=== PATIENT | male | born 1960 | race African-American/Black ===

== ENCOUNTER 2016-05-30 09:44 | Inpatient (IN) | payer OTHER ==
[2016-05-30 10:56] VITALS: BMI 24.5
--- NOTE | 2016-05-30 12:47 | HP ---
CIWA Score - CIWA Score Nausea/Vomitin (DIARRHEA) Muscle Tremors: 4-Moderate,w/Arms Extend Anxiety: 4-Mod. Anxious/Guarded Agitation: 4-Moderately Restless Paroxysmal Sweats: 1-Minimal Palms Moist Orientation: 0-Oriented Tacttile Disturbances: 3-Moderate Itch/Numb/Burn Auditory Disturbances: 0-None Visual Disturbances: 0-None Headache: 0-None Present CIWA-Ar Total Score: 21 Admission ROS BHS - HPI Chief Complaint: DETOX TX FOR ALCOHOL DEPENDENCE. Allergies/Adverse Reactions: Allergies Allergy/AdvReac Type Severity Reaction Status Date / Time No Known Drug Allergies Allergy Verified 05/30/16 13:54 SHRIMP Allergy Severe Swelling Uncoded 05/30/16 11:48 NKDA Allergy Uncoded 05/30/16 11:48 History of Present Illness: 56 Y/O AA/MALE WITH A HX OF ALCOHOL DEPENDENCE SEEKING DETOX TX. PT WAS DISCHARGED FROM [facility] ER TODAY FOR ALCOHOL INTOXICATION AND REFERRED HERE FOR DETOX. Exam Limitations: No Limitations, Intoxication - Ebola screening Have you traveled outside of the country in the last 21 days: No Have you had contact with anyone from an Ebola affected area: No Have you been sick,other than usual withdrawal symptoms: No - Review of Systems Constitutional: Chills, Night Sweats, Changes in sleep EENT: reports: Blurred Vision, Tearing, Dental Problems, Other (ABRASION ON RIGHT SIDE OF NOSE FROM SCRATCHING PER PATIENT.) Respiratory: reports: Shortness of Breath (HX CHILDHOOD ASTHMA), Wheezing Cardiac: reports: Lightheadedness GI: reports: Diarrhea : reports: No Symptoms Reported Musculoskeletal: reports: Gout (LEFT BIG TOE), Joint Pain (LEFT KNEE PAIN), Muscle Pain Integumentary: reports: Bruising (LEFT SIDE OF NOSE.) Neuro: reports: Tremors, Unsteady Gait, Dizziness Endocrine: reports: No Symptoms Reported Hematology: reports: No Symptoms Reported Psychiatric: reports: Orientated x3, Anxious, Depressed Other Systems: Reviewed and Negative Patient History - Patient Medical History Hx Anemia: No Hx Asthma: Yes (as a child) Hx Chronic Obstructive Pulmonary Disease (COPD): No Hx Cancer: No Hx Cardiac Disorders: No Hx Congestive Heart Failure: No Hx Hypertension: No Hx Hypercholesterolemia: No Hx Pacemaker: No HX Cerebrovascular Accident: No Hx Seizures: No Hx Dementia: No Hx Diabetes: No Hx Gastrointestinal Disorders: No Hx Liver Disease: No Hx Genitourinary Disorders: No Hx Sexually Transmitted Disorders: Yes (gonorrhea) Hx Renal Disease (ESRD): No Hx Thyroid Disease: No Hx Human Immunodeficiency Virus (HIV): No (NEG. 3 WKS AGO;NEGATIVE HX) Hx Hepatitis C: No Hx Depression: Yes Hx Suicide Attempt: No Hx Bipolar Disorder: Yes Hx Schizophrenia: Yes - Patient Surgical History Past Surgical History: Yes Hx Neurologic Surgery: No Hx Cataract Extraction: No Hx Cardiac Surgery: No Hx Lung Surgery: No Hx Breast Surgery: No Hx Breast Biopsy: No Hx Abdominal Surgery: No Hx Appendectomy: No Hx Cholecystectomy: No Hx Genitourinary Surgery: No Hx Orthopedic Surgery: No Other Surgical History: L testicle sx-TESTICULAR TORSION Anesthesia Reaction: No - PPD History Previous Implant?: Yes Documented Results: Negative w/proof (PT WAS NEGATIVE WITH PROOF ON 02/07/15 ADMISSION HERE. TODAY, PT STATES HX PPD+ WITH INH TREATMENT MANY YEARS AGO. NOW WANTS CXR.) Implanted On Prior [facility] Admission?: Yes Date: 02/07/15 Results: 0 mm PPD to be Administered?: Yes - Reproductive History Patient is a Female of Child Bearing Age (11 -55 yrs old): No (MALE) - Smoking Cessation Smoking history: Former smoker Have you smoked in the past 12 months: No Aproximately how many cigarettes per day: 0 If you are a former smoker, when did you quit?: 1980 Cigars Per Day: 0 Hx Chewing Tobacco Use: No Initiated information on smoking cessation: No - Substance & Tx. History Hx Alcohol Use: Yes (BEER) Hx Substance Use: No (DENIES) Substance Use Type: Alcohol Hx Substance Use Treatment: Yes ([facility]-DETOX) - Substances Abused Alcohol-beer Route: Oral Frequency: Daily Amount used: 5 (40 oz.) Age of first use: 9 Date of Last Use: 05/30/16 Family Disease History - Family Disease History Family Disease History: CA: Father Admission Physical Exam BHS - Vital Signs Vital Signs: Vital Signs - 24 hr 05/30/16 10:50 Temperature 96.5 F L Pulse Rate 106 H Respiratory 20 Rate Blood Pressure 113/78 - Physical General Appearance: Yes: Moderate Distress, Alcohol on Breath, Intoxicated, Anxious HEENTM: Yes: EOMI, Normocephalic, [place], Pharynx Normal Respiratory: Yes: Chest Non-Tender, Lungs Clear, Normal Breath Sounds, No Respiratory Distress Neck: Yes: Supple, Trachea in good position Breast: Yes: Breast Exam Deferred Cardiology: Yes: Regular Rhythm, S1, S2, Tachycardia Abdominal: Yes: Normal Bowel Sounds, Non Tender, Soft Genitourinary: Yes: Other (N/C) Back: Yes: Within Normal Limits Musculoskeletal: Yes: full range of Motion, Gait Steady Extremities: Yes: Normal Range of Motion, Non-Tender, Swelling (LOWER LEGS.) Neurological: Yes: diaper machine tender II-XII NML intact, Fully Oriented, Alert Integumentary: Yes: Dry (AND SCALY), Warm Lymphatic: Yes: Within Normal Limits - Diagnostic (1) Arthritis of knee, right Current Visit: Yes Status: Chronic (2) History of depression Current Visit: Yes Status: Chronic (3) Gouty arthritis of toe of left foot Current Visit: Yes Status: Chronic (4) Arthritis of left knee Current Visit: Yes Status: Chronic (5) Abrasion Current Visit: No Status: Acute (6) Dry skin Current Visit: Yes Status: Chronic (7) Alcohol dependence with uncomplicated withdrawal Current Visit: Yes Status: Acute Cleared for Admission [facility] - Detox or Rehab [facility] Level of Care: Medically Managed Detox Regimen/Protocol: Librium [facility] Breath Alcohol Content Breath Alcohol Content: 0.170 Urine Drug Screen - Results Drug Screen Negative: No Urine Drug Screen Results: BZO-Benzodiazepines
[2016-05-30] MEDS ORDERED: MAGNESIUM HYDROX 2400MG/30ML ORAL SUSPENSION 30 ML CUP PO PRN (13:24)
[2016-05-30] MEDS ORDERED: MAG HYDROX/AL HYDROX/SIMETH 30 ML UNIT-DOSE CUP PO PRN (13:24)
[2016-05-30] MEDS ORDERED: MAGNESIUM CITRATE 300 ML BOTTLE PO PRN (13:24)
[2016-05-30] MEDS ORDERED: guaiFENesin/D-METHORPHAN HB 10 ML UNIT-DOSE CUPS PO PRN (13:24)
[2016-05-30] MEDS ORDERED: chlordiazePOXIDE HCL 25 MG CAPSULE PO PRN (13:24)
[2016-05-30] MEDS ORDERED: MENTHOL/PHENOL 1 EACH UD MM PRN (13:24)
[2016-05-30] MEDS ORDERED: ACETAMINOPHEN 325 MG TABLET (FP) PO PRN (13:24)
[2016-05-30] MEDS ORDERED: P-EPHED 60MG/TRIPROLIDI 2.5MG TABLET PO PRN (13:24)
[2016-05-30] MEDS ORDERED: LOPERAMIDE HCL 2 MG CAPSULE PO PRN (13:24)
[2016-05-30] MEDS ORDERED: hydrOXYzine PAMOATE 25 MG CAPSULE (FP) PO PRN (13:24)
[2016-05-30] MEDS ORDERED: diphenhydrAMINE HCL 50 MG CAPSULE PO PRN (13:24)
[2016-05-30] MEDS ORDERED: AMMONIUM LACTATE 12% LOTION 225 GM BOTTLE TP SCH ×2 (13:30→16:30)
[2016-05-30] MEDS ORDERED: chlordiazePOXIDE HCL 25 MG CAPSULE PO ONE (14:41)
[2016-05-30 15:11] LABS: HIV 1 & 2 AB NEGATIVE; HIV 1 AGp24 NEGATIVE
[2016-05-30] MEDS: IBUPROFEN 400 MG TABLET (FP) PO PRN (15:20)
--- NOTE | 2016-05-30 15:34 | CONSULT ---
[facility] Psychiatric Consult - Data Date of interview: 05/30/16 Admission source: [facility] Identifying data: Readmission to [facility] for this 56 y/o AA male seeking detox treatment for alcohol dependence.He is single,a father of five,domiciled ( transitional housing),unemployed and supported on [facility] benefits. Substance Abuse History: - Smoking Cessation. Smoking history: Former smoker. Have you smoked in the past 12 months: No. Aproximately how many cigarettes per day: 0. If you are a former smoker, when did you quit?: 1979. Cigars Per Day: 0. Hx Chewing Tobacco Use: No. Initiated information on smoking cessation : No. - Substance & Tx. History. Hx Alcohol Use: Yes (BEER). Hx Substance Use : No (DENIES). Substance Use Type: Alcohol. Hx Substance Use Treatment: Yes ( [facility]). - Substances Abused. Alcohol-beer. Route: Oral. Frequency: Daily. Amount used: 5 (40 oz.). Age of first use: 9. Date of Last Use: Medical History: Bronchial asthma (childhood),seizures (alcohol-induced in 2013 ) and history of testicular torsion.Noted report of past treatment for gonorrhea. Psychiatric History: No history of psychiatric hospitalizations.Patient admits to being diagnosed with " Bipolar Disorder and Schizophrenia." Mr Salguero used to be followed at [facility] clinic.He now gets his psychiatric oupatient services at the [facility] in the [place].Patient is maintained on a regimen of 10 mg of asenapine (saphris) daily.Patient has no recollection of his most recent intake of that medication.No history of suicide attempts. Physical/Sexual Abuse/Trauma History: Patient denies. Additional Comment: Urine Drug Screen Results: BZO-Benzodiazepines.Noted. Mental Status Exam - Mental Status Exam Alert and Oriented to: Time, Place, Person Cognitive Function: Good Patient Appearance: Disheveled Mood: Nervous, Withdrawn, Apprehensive Affect: Mood Congruent Patient Behavior: Fatigued, Appropriate, Cooperative Speech Pattern: Clear, Appropriate Voice Loudness: Normal Thought Process: Goal Oriented Thought Disorder: Not Present Hallucinations: Denies Suicidal Ideation: Denies Homicidal Ideation: Denies Insight/Judgement: Fair Sleep: Poorly, Difficulty falling asleep Appetite: Good Muscle strength/Tone: Normal Gait/Station: Normal Psychiatric Findings - Problem List ([place] 1, 2,3) (1) Alcohol dependence with uncomplicated withdrawal Current Visit: Yes Status: Acute (2) Bipolar disorder Current Visit: Yes Status: Chronic Qualifiers: Active/Remission status: remission status unspecified Qualified Code(s) : F31.9 - Bipolar disorder, unspecified Comment: History. (3) Substance induced mood disorder Current Visit: Yes Status: Acute (4) Arthritis of left knee Current Visit: Yes Status: Chronic (5) Gouty arthritis of toe of left foot Current Visit: Yes Status: Chronic (6) Arthritis of knee, right Current Visit: Yes Status: Chronic (7) Insomnia Current Visit: Yes Status: Acute - Initial Treatment Plan Initial Treatment Plan: Psychoeducation.Detoxification.Zolpidem 10 mg po hs prn.Patient made aware of risk of parasomnias.He agrees with this plan.Observation.
[2016-05-30] MEDS: chlordiazePOXIDE HCL 25 MG CAPSULE PO SCH ×2 (17:30→22:25)
[2016-05-30 21:50] LABS: URINE APPEARANCE CLEAR; URINE BILIRUBIN NEGATIVE (NEGATIVE); URINE BLOOD NEGATIVE (NEGATIVE); URINE COLOR YELLOW; URINE GLUCOSE (UA) NEGATIVE (NEGATIVE); URINE KETONE NEGATIVE (NEGATIVE); URINE LEUK ESTERASE NEGATIVE (NEGATIVE); URINE NITRITE NEGATIVE (NEGATIVE); URINE PROTEIN NEGATIVE (NEGATIVE); URINE UROBILINOGEN 2.0 E.U/dl E.U./dl (0.2-1.0)
[2016-05-30] MEDS: ZOLPIDEM TARTRATE 10 MG TABLET (PARK CARE ONLY) PO PRN (22:25)
[2016-05-30] MEDS: THIAMINE HCL 100 MG TABLET (FP) PO SCH (22:25)
[2016-05-31] MEDS: chlordiazePOXIDE HCL 25 MG CAPSULE PO SCH ×4 (06:05→22:24)
--- NOTE | 2016-05-31 10:35 | PN ---
S CIWA - CIWA Score Nausea/Vomitin-No Nausea/No Vomiting Muscle Tremors: 3 Anxiety: 4-Mod. Anxious/Guarded Agitation: 3 Paroxysmal Sweats: 3 Orientation: 0-Oriented Tacttile Disturbances: 0-None Auditory Disturbances: 0-None Visual Disturbances: 0-None Headache: 0-None Present CIWA-Ar Total Score: 13 S Progress Note (SOAP) Subjective: Anxiety,tremors,sweating,interrupted sleep. Objective: 05/31/16 10:34 Vital Signs - 8 hr 05/31/16 05/31/16 03:30 06:43 Temperature 97.7 F Pulse Rate 118 H Respiratory 18 16 Rate Blood Pressure 124/75 Laboratory Tests 05/30/16 05/30/16 05/30/16 13:10 13:30 20:00 Urine Color Yellow Urine Appearance Clear Urine pH 5.0 Ur Specific [place] 1.009 Urine Protein Negative Urine Glucose (UA) Negative Urine Ketones Negative Urine Blood Negative Urine Nitrite Negative Urine Bilirubin Negative Urine Urobilinogen 2.0 e.u/dl Ur Leukocyte Esterase Negative Hepatitis C Antibody <0.1 HIV 1&2 Antibody Screen Negative HIV P24 Antigen Negative labs noted Assessment: 05/31/16 10:34 Withdrawal sx. Plan: Continue detox
[2016-05-31] MEDS: PRENATAL VITAMINS W/ FOLIC ACID TABLET (FP) PO SCH (10:52)
[2016-05-31 11:17] LABS: MCH 31.4 pg (25.7-33.7); MCHC 32.8 g/dl (32.0-35.9); MEAN CELL VOLUME 95.7 fl (80-96); MEAN PLT VOLUME 8.2 fl (7.5-11.1); PLATELET COUNT 104 K/MM3 (134-434); RDW 14.3 % (11.9-15.9); WHITE BLOOD COUNT 2.5 K/mm3 (4.0-10.0)
[2016-05-31 11:36] LABS: ANION GAP 10 (8-16); CALCIUM 8.3 mg/dL (8.5-10.1); CO2 29 mmol/L (21-32); CREATININE 0.9 mg/dL (0.7-1.3); GLUCOSE,RANDOM 64 mg/dL (74-106)
[2016-05-31 11:37] LABS: ALBUMIN 3.5 g/dl (3.4-5.0); ALK PHOS 147 U/L (45-117); BILIRUBIN,TOTAL 0.7 mg/dL (0.2-1.0); SGOT/AST 71 U/L (15-37); SGPT/ALT 39 U/L (12-78); TOT PROT 8.5 g/dl (6.4-8.2)
[2016-05-31] MEDS: IBUPROFEN 400 MG TABLET (FP) PO PRN (17:38)
[2016-05-31] MEDS: THIAMINE HCL 100 MG TABLET (FP) PO SCH (22:24)
[2016-05-31] MEDS: ZOLPIDEM TARTRATE 10 MG TABLET (PARK CARE ONLY) PO PRN (22:24)
[2016-06-01] MEDS: chlordiazePOXIDE HCL 25 MG CAPSULE PO SCH ×2 (06:12→10:24)
[2016-06-01] MEDS: PRENATAL VITAMINS W/ FOLIC ACID TABLET (FP) PO SCH (10:24)
[2016-06-01] MEDS: IBUPROFEN 400 MG TABLET (FP) PO PRN (10:25)
[2016-06-01] MEDS: LIDOCAINE 5% TOPICAL PATCH TP SCH (13:57)
--- NOTE | 2016-06-01 16:06 | PN ---
S CIWA - CIWA Score Nausea/Vomitin Muscle Tremors: 4-Moderate,w/Arms Extend Anxiety: 3 Agitation: 4-Moderately Restless Paroxysmal Sweats: No Perspiration Orientation: 0-Oriented Tacttile Disturbances: 1-Very Mild Itch/Numbness Auditory Disturbances: 0-None Visual Disturbances: 0-None Headache: 3-Moderate CIWA-Ar Total Score: 18 BHS Progress Note (SOAP) Subjective: Anxious, back pain (9.5/10), sweating, interrupted sleep Objective: 06/01/16 16:05 Last Vital Signs Temp Pulse Resp BP Pulse Ox 97 F L 117 H 19 107/73 06/01/16 14:12 06/01/16 14:12 06/01/16 14:12 06/01/16 14:12 Laboratory Tests 05/30/16 05/30/16 05/30/16 13:10 13:30 20:00 WBC RBC Hgb Hct MCV MCHC RDW Plt Count MPV Sodium Potassium Chloride Carbon Dioxide Anion Gap BUN Creatinine Creat Clearance w eGFR Random Glucose Calcium Total Bilirubin AST ALT Alkaline Phosphatase Total Protein Albumin Urine Color Yellow Urine Appearance Clear Urine pH 5.0 Ur Specific [place] 1.009 Urine Protein Negative Urine Glucose (UA) Negative Urine Ketones Negative Urine Blood Negative Urine Nitrite Negative Urine Bilirubin Negative Urine Urobilinogen 2.0 e.u/dl Ur Leukocyte Esterase Negative RPR Titer Hepatitis C Antibody <0.1 HIV 1&2 Antibody Screen Negative HIV P24 Antigen Negative 05/31/16 05/31/16 05/31/16 06:15 06:15 06:15 WBC 2.5 L D RBC 4.05 Hgb 12.7 Hct 38.8 MCV 95.7 MCHC 32.8 RDW 14.3 Plt Count 104 L MPV 8.2 Sodium 141 Potassium 3.7 Chloride 102 Carbon Dioxide 29 Anion Gap 10 BUN 8 D Creatinine 0.9 D Creat Clearance w eGFR > 60 Random Glucose 64 L D Calcium 8.3 L Total Bilirubin 0.7 D AST 71 H ALT 39 D Alkaline Phosphatase 147 H Total Protein 8.5 H Albumin 3.5 D Urine Color Urine Appearance Urine pH Ur Specific [place] Urine Protein Urine Glucose (UA) Urine Ketones Urine Blood Urine Nitrite Urine Bilirubin Urine Urobilinogen Ur Leukocyte Esterase RPR Titer Nonreactive Hepatitis C Antibody HIV 1&2 Antibody Screen HIV P24 Antigen Labs noted Assessment: 06/01/16 16:05 Withdrawal symptoms Plan: Continue detox Lidocaine patch 5% for back pain
[2016-06-01] MEDS: chlordiazePOXIDE 5 MG CAPSULE PO SCH ×2 (17:46→22:25)
[2016-06-01] MEDS: THIAMINE HCL 100 MG TABLET (FP) PO SCH (22:25)
[2016-06-01] MEDS: ZOLPIDEM TARTRATE 10 MG TABLET (PARK CARE ONLY) PO PRN (22:25)
[2016-06-02] MEDS: chlordiazePOXIDE 5 MG CAPSULE PO SCH ×2 (06:07→10:36)
[2016-06-02] MEDS: IBUPROFEN 400 MG TABLET (FP) PO PRN (06:08)
[2016-06-02] MEDS: PRENATAL VITAMINS W/ FOLIC ACID TABLET (FP) PO SCH (10:36)
[2016-06-02] MEDS: LIDOCAINE 5% TOPICAL PATCH TP SCH (11:05)
--- NOTE | 2016-06-02 11:33 | EKG ---
Test Reason : Blood Pressure : / mmHG Vent. Rate : 102 BPM Atrial Rate : 102 BPM P-R Int : 136 ms QRS Dur : 074 ms QT Int : 346 ms P-R-T Axes : 048 039 047 degrees QTc Int : 450 ms SINUS TACHYCARDIA OTHERWISE NORMAL ECG NO PREVIOUS ECGS AVAILABLE Confirmed by LIAM GAYTAN MD ([id number]) on 06/02/2016 11:32:28 AM Referred By: Yossi Gardner Confirmed By:LIAM GAYTAN MD
--- NOTE | 2016-06-02 13:59 | PN ---
BHS Progress Note (SOAP) Subjective: Sweating,interrupted sleep,restless. Objective: 06/02/16 13:59 Vital Signs - 8 hr 06/02/16 06/02/16 06/02/16 06:49 09:35 13:32 Temperature 97.4 F L 96.2 F L 96.8 F L Pulse Rate 112 H 98 H 104 H Respiratory 16 20 20 Rate Blood Pressure 118/74 114/74 111/71 Laboratory Last Values WBC 2.5 K/mm3 (4.0-10.0) L D 05/31/16 06:15 RBC 4.05 M/mm3 (4.00-5.60) 05/31/16 06:15 Hgb 12.7 GM/dL (11.7-16.9) 05/31/16 06:15 Hct 38.8 % (35.4-49) 05/31/16 06:15 MCV 95.7 fl (80-96) 05/31/16 06:15 MCHC 32.8 g/dl (32.0-35.9) 05/31/16 06:15 RDW 14.3 % (11.9-15.9) 05/31/16 06:15 Plt Count 104 K/MM3 (134-434) L 05/31/16 06:15 MPV 8.2 fl (7.5-11.1) 05/31/16 06:15 Sodium 141 mmol/L (136-145) 05/31/16 06:15 Potassium 3.7 mmol/L (3.5-5.1) 05/31/16 06:15 Chloride 102 mmol/L (98-107) 05/31/16 06:15 Carbon Dioxide 29 mmol/L (21-32) 05/31/16 06:15 Anion Gap 10 (8-16) 05/31/16 06:15 BUN 8 mg/dL (7-18) D 05/31/16 06:15 Creatinine 0.9 mg/dL (0.7-1.3) D 05/31/16 06:15 Creat Clearance w eGFR > 60 (>60) 05/31/16 06:15 Random Glucose 64 mg/dL (74-106) L D 05/31/16 06:15 Calcium 8.3 mg/dL (8.5-10.1) L 05/31/16 06:15 Total Bilirubin 0.7 mg/dL (0.2-1.0) D 05/31/16 06:15 AST 71 U/L (15-37) H 05/31/16 06:15 ALT 39 U/L (12-78) D 05/31/16 06:15 Alkaline Phosphatase 147 U/L (45-117) H 05/31/16 06:15 Total Protein 8.5 g/dl (6.4-8.2) H 05/31/16 06:15 Albumin 3.5 g/dl (3.4-5.0) D 05/31/16 06:15 Urine Color Yellow 05/30/16 20:00 Urine Appearance Clear 05/30/16 20:00 Urine pH 5.0 (5.0-8.0) 05/30/16 20:00 Ur Specific [place] 1.009 (1.001-1.035) 05/30/16 20:00 Urine Protein Negative (NEGATIVE) 05/30/16 20:00 Urine Glucose (UA) Negative (NEGATIVE) 05/30/16 20:00 Urine Ketones Negative (NEGATIVE) 05/30/16 20:00 Urine Blood Negative (NEGATIVE) 05/30/16 20:00 Urine Nitrite Negative (NEGATIVE) 05/30/16 20:00 Urine Bilirubin Negative (NEGATIVE) 05/30/16 20:00 Urine Urobilinogen 2.0 e.u/dl E.U./dl (0.2-1.0) 05/30/16 20:00 Ur Leukocyte Esterase Negative (NEGATIVE) 05/30/16 20:00 RPR Titer Nonreactive (NONREACTIVE) 05/31/16 06:15 Hepatitis C Antibody <0.1 s/co ratio (0.0-0.9) 05/30/16 13:30 HIV 1&2 Antibody Screen Negative 05/30/16 13:10 HIV P24 Antigen Negative 05/30/16 13:10 labs noted Assessment: 06/02/16 13:59 Withdrawal sx. Plan: Continue detox
[2016-06-02] MEDS: chlordiazePOXIDE HCL 10 MG CAPSULE PO SCH ×2 (17:13→22:33)
[2016-06-02] MEDS: THIAMINE HCL 100 MG TABLET (FP) PO SCH (22:33)
[2016-06-03] MEDS: chlordiazePOXIDE HCL 10 MG CAPSULE PO SCH (05:37)
[2016-06-03] MEDS: LIDOCAINE 5% TOPICAL PATCH TP SCH (10:22)
[2016-06-03] MEDS: PRENATAL VITAMINS W/ FOLIC ACID TABLET (FP) PO SCH (10:22)
[2016-06-03 13:25] VITALS: BP 101/73; PULSE 75
[2016-06-03 13:43] VITALS: TEMP 97
--- NOTE | 2016-06-03 14:17 | DS ---
[facility] Detox Discharge Summary Admission Date: 05/30/16 Discharge Date: 06/03/16 - History Present History: Alcohol Dependence Additional Comments: DETOX COMPLETED. ALERT O X 3. NAD. CXR REPORT GIVEN TO PT TO FOLLOW UP WITH PMD. Pertinent Past History: GOUTY ARTHRITIS LEFT TOE ARTHRITIS RIGHT KNEE HX PPD (+) BIPOLAR DISORDER - Physical Exam Results Vital Signs: Vital Signs Temperature 97.0 F L 06/03/16 13:41 Pulse Rate 75 06/03/16 13:41 Respiratory Rate 20 06/03/16 13:41 Blood Pressure 101/73 06/03/16 13:41 O2 Sat by Pulse Oximetry (%) Pertinent Admission Physical Exam Findings: WITHDRAWAL SX - Treatment Hospital Course: Detox Protocol Followed, Detoxed Safely, Responded well, Discharged Condition Good - Medication Discharge Medications: Ambulatory Orders Asenapine [Saphris -] 10 mg SL DAILY 02/05/15 - Diagnosis (1) Arthritis of knee, right Current Visit: Yes Status: Chronic (2) History of depression Current Visit: Yes Status: Chronic (3) Gouty arthritis of toe of left foot Current Visit: Yes Status: Chronic (4) Arthritis of left knee Current Visit: Yes Status: Chronic (5) Abrasion Current Visit: No Status: Resolved (6) Dry skin Current Visit: Yes Status: Chronic (7) Alcohol dependence with uncomplicated withdrawal Current Visit: Yes Status: Acute - AMA Did Patient Leave Against Medical Advice: No
== END 2016-06-03 14:13 | disposition home or self-care (01) | DRG 775 ==
LOC: YASAS 09:44 → Y3N 12:48
PROVIDERS: ADMIT Internal Medicine; ATTEND Internal Medicine
PROC: HZ2ZZZZ Detoxification Services for Substance Abuse Treatment (ICD-10-PCS; principal; 2016-06-03)
DX: F10.230 Alcohol dependence with withdrawal, uncomplicated (principal); F31.9 Bipolar disorder, unspecified; F19.24 Other psychoactive substance dependence with psychoactive substance-induced mood disorder; M10.9 Gout, unspecified; M13.862 Other specified arthritis, left knee; M13.861 Other specified arthritis, right knee; G47.00 Insomnia, unspecified
CPT/HCPCS: 36415; 71010-TC; 71020-TC; 80053; 81003; 85027; 86593; 87389; 93005; 93010

== ENCOUNTER 2016-11-25 08:51 | Inpatient (IN) | payer OTHER ==
[2016-11-25 10:45] VITALS: BMI 22.9
--- NOTE | 2016-11-25 13:27 | HP ---
CIWA Score - CIWA Score Nausea/Vomitin-No Nausea/No Vomiting Muscle Tremors: 4-Moderate,w/Arms Extend Anxiety: 4-Mod. Anxious/Guarded Agitation: 3 Paroxysmal Sweats: 1-Minimal Palms Moist Orientation: 0-Oriented Tacttile Disturbances: 3-Moderate Itch/Numb/Burn Auditory Disturbances: 0-None Visual Disturbances: 0-None Headache: 0-None Present CIWA-Ar Total Score: 15 Admission ROS BHS - HPI Chief Complaint: DETOX TX FOR ALCOHOL DEPENDENCE Allergies/Adverse Reactions: Allergies Allergy/AdvReac Type Severity Reaction Status Date / Time No Known Drug Allergies Allergy Verified 11/25/16 10:44 SHRIMP Allergy Severe Swelling Uncoded 11/25/16 10:44 NKDA Allergy Uncoded 11/25/16 10:44 History of Present Illness: 56 Y/O AA/MALE WITH A HX OF ALCOHOL DEPENDENCE SEEKING DETOX TX. PT STATES WAS AT [facility] LAST NIGHT FOR ALCOHOL INTOXICATION AND DIARRHEA. DISCHARGED TO DETOX THIS MORNING. Exam Limitations: No Limitations - Ebola screening Have you traveled outside of the country in the last 21 days: No Have you had contact with anyone from an Ebola affected area: No Have you been sick,other than usual withdrawal symptoms: No Do you have a fever: No - Review of Systems Constitutional: Chills, Night Sweats, Changes in sleep, Unintentional Wgt. Loss EENT: reports: Blurred Vision (WEARS GLASSES), Tearing, Nose Congestion, Dental Problems Respiratory: reports: Shortness of Breath (HX CHILDHOOD ASTHMA("I GREW OUT OF IT SINCE I WAS 12")), Wheezing Cardiac: reports: Chest Pain (SHARP PAINS ON THE RIGHT COMES AND GOES WITH MOVEMENT.), Lightheadedness GI: reports: Blood Streaked Bowels, Constipated, Diarrhea, Nausea, Vomiting : reports: No Symptoms Reported Musculoskeletal: reports: Back Pain Integumentary: reports: Dryness Neuro: reports: Headache, Seizure (X 1), Tremors, Unsteady Gait, Dizziness Endocrine: reports: No Symptoms Reported Hematology: reports: No Symptoms Reported Psychiatric: reports: Orientated x3, Agitated, Anxious, Depressed Other Systems: Reviewed and Negative Patient History - Patient Medical History Hx Anemia: No Hx Asthma: Yes (as a child) Hx Chronic Obstructive Pulmonary Disease (COPD): No Hx Cancer: No Hx Cardiac Disorders: No Hx Congestive Heart Failure: No Hx Hypertension: No Hx Hypercholesterolemia: No Hx Pacemaker: No HX Cerebrovascular Accident: No Hx Seizures: Yes (X 1 ONE YEAR AGO) Hx Dementia: No Hx Diabetes: No Hx Gastrointestinal Disorders: No Hx Liver Disease: No Hx Genitourinary Disorders: No Hx Sexually Transmitted Disorders: Yes (gonorrhea) Hx Renal Disease (ESRD): No Hx Thyroid Disease: No Hx Human Immunodeficiency Virus (HIV): No (NEGATIVE HX) Hx Hepatitis C: No Hx Depression: Yes Hx Suicide Attempt: No Hx Bipolar Disorder: Yes (ON MEDS) Hx Schizophrenia: Yes - Patient Surgical History Past Surgical History: Yes Hx Neurologic Surgery: No Hx Cataract Extraction: No Hx Cardiac Surgery: No Hx Lung Surgery: No Hx Breast Surgery: No Hx Breast Biopsy: No Hx Abdominal Surgery: No Hx Appendectomy: No Hx Cholecystectomy: No Hx Genitourinary Surgery: No Hx Orthopedic Surgery: No Other Surgical History: L testicle sx for testicular torsion in 1977 Anesthesia Reaction: No - PPD History Previous Implant?: Yes Documented Results: Negative w/proof Implanted On Prior [facility] Admission?: Yes Date: 02/07/15 Results: 0 mm - Reproductive History Patient is a Female of Child Bearing Age (11 -55 yrs old): No (MALE) Patient : Yes (N/A) - Smoking Cessation Smoking history: Former smoker Have you smoked in the past 12 months: No Aproximately how many cigarettes per day: 0 If you are a former smoker, when did you quit?: 1979 Cigars Per Day: 0 Hx Chewing Tobacco Use: No Initiated information on smoking cessation: No - Substance & Tx. History Hx Alcohol Use: Yes Hx Substance Use: No (DENIES) Substance Use Type: Alcohol Hx Substance Use Treatment: Yes (WAS HERE LAST IN 2014) - Substances Abused Alcohol-beer Route: Oral Frequency: Daily Amount used: 4-5 (40 oz.) Age of first use: 9 Date of Last Use: 11/24/16 Family Disease History - Family Disease History Family Disease History: CA: Father Admission Physical Exam BHS - Vital Signs Vital Signs: Vital Signs - 24 hr 11/25/16 10:42 Temperature 97 F L Pulse Rate 101 H Respiratory 20 Rate Blood Pressure 145/86 - Physical General Appearance: Yes: Moderate Distress, Alcohol on Breath, Intoxicated, Irritable, Anxious, Other (PT SMELLS OF URINE DUE PROBABLY TO INCONTINENCE.) HEENTM: Yes: EOMI, Normocephalic, [place], Pharynx Normal, Nasal Congestion, Rhinorrhea Respiratory: Yes: Chest Non-Tender, Lungs Clear, Normal Breath Sounds, No Respiratory Distress Neck: Yes: Supple, Trachea in good position Breast: Yes: Breast Exam Deferred Cardiology: Yes: Regular Rhythm, S1, S2, Tachycardia Abdominal: Yes: Normal Bowel Sounds, Non Tender, Soft Genitourinary: Yes: Incontinient Back: Yes: Within Normal Limits Musculoskeletal: Yes: full range of Motion, Gait Steady Extremities: Yes: Normal Range of Motion, Non-Tender, Tremors Neurological: Yes: foxer II-XII NML intact, Fully Oriented, Alert Integumentary: Yes: Dry, Warm, Pitting Edema (BOTH LOWER EXTREMITIES), Other ( HEALING ABRASION ON LEFT BRAUN) Lymphatic: Yes: Within Normal Limits - Diagnostic (1) Alcohol dependence with uncomplicated withdrawal Current Visit: Yes Status: Acute (2) Arthritis of knee, right Current Visit: Yes Status: Chronic (3) Arthritis of left knee Current Visit: Yes Status: Chronic (4) Dry skin Current Visit: Yes Status: Chronic (5) Gouty arthritis of toe of left foot Current Visit: Yes Status: Chronic Cleared for Admission [facility] - Detox or Rehab [facility] Level of Care: Medically Managed Detox Regimen/Protocol: Librium [facility] Breath Alcohol Content Breath Alcohol Content: 0.014 Urine Drug Screen - Results Drug Screen Negative: No Urine Drug Screen Results: AMRIK-Cocaine, BZO-Benzodiazepines
[2016-11-25] MEDS ORDERED: MAGNESIUM CITRATE 300 ML BOTTLE PO PRN (14:59)
[2016-11-25] MEDS ORDERED: LOPERAMIDE HCL 2 MG CAPSULE PO PRN (14:59)
[2016-11-25] MEDS ORDERED: chlordiazePOXIDE HCL 25 MG CAPSULE PO PRN (14:59)
[2016-11-25] MEDS ORDERED: MAGNESIUM HYDROX 2400MG/30ML ORAL SUSPENSION 30 ML CUP PO PRN (14:59)
[2016-11-25] MEDS ORDERED: P-EPHED 60MG/TRIPROLIDI 2.5MG TABLET PO PRN (14:59)
[2016-11-25] MEDS ORDERED: ACETAMINOPHEN 325 MG TABLET (FP) PO PRN (14:59)
[2016-11-25] MEDS ORDERED: guaiFENesin/D-METHORPHAN HB 10 ML UNIT-DOSE CUPS PO PRN (14:59)
[2016-11-25] MEDS ORDERED: IBUPROFEN 400 MG TABLET (FP) PO PRN (14:59)
[2016-11-25] MEDS ORDERED: MENTHOL/PHENOL 1 EACH UD MM PRN (14:59)
[2016-11-25] MEDS ORDERED: MAG HYDROX/AL HYDROX/SIMETH 30 ML UNIT-DOSE CUP PO PRN (14:59)
[2016-11-25] MEDS ORDERED: chlordiazePOXIDE HCL 25 MG CAPSULE PO ONE (15:30)
[2016-11-25 17:25] LABS: MCH 33.5 pg (25.7-33.7); MEAN CELL VOLUME 98.5 fl (80-96); MEAN PLT VOLUME 7.2 fl (7.5-11.1); PLATELET COUNT 435 K/MM3 (134-434); WHITE BLOOD COUNT 5.7 K/mm3 (4.0-10.0)
[2016-11-25 17:31] LABS: URINE APPEARANCE SLCLOUDY; URINE BILIRUBIN NEGATIVE (NEGATIVE); URINE BLOOD NEGATIVE (NEGATIVE); URINE COLOR LTYELLOW; URINE GLUCOSE (UA) NEGATIVE (NEGATIVE); URINE KETONE NEGATIVE (NEGATIVE); URINE LEUK ESTERASE NEGATIVE (NEGATIVE); URINE NITRITE NEGATIVE (NEGATIVE); URINE PROTEIN NEGATIVE (NEGATIVE); URINE UROBILINOGEN NEGATIVE mg/dL (0.2-1.0)
[2016-11-25] MEDS: chlordiazePOXIDE HCL 25 MG CAPSULE PO SCH ×2 (17:41→22:38)
[2016-11-25 17:49] LABS: ALBUMIN 3.5 g/dl (3.4-5.0); ANION GAP 6 (8-16); CALCIUM 8.8 mg/dL (8.5-10.1); CO2 27 mmol/L (21-32); GLUCOSE,RANDOM 72 mg/dL (74-106)
[2016-11-25 17:54] LABS: ALK PHOS 86 U/L (45-117); BILIRUBIN,TOTAL 0.4 mg/dL (0.2-1.0); CREATININE 0.9 mg/dL (0.7-1.3); SGOT/AST 30 U/L (15-37); SGPT/ALT 20 U/L (12-78); TOT PROT 8.2 g/dl (6.4-8.2)
[2016-11-25] MEDS: diphenhydrAMINE HCL 50 MG CAPSULE PO PRN (22:38)
[2016-11-25] MEDS: THIAMINE HCL 100 MG TABLET (FP) PO SCH (22:38)
[2016-11-26] MEDS: chlordiazePOXIDE HCL 25 MG CAPSULE PO SCH ×4 (05:51→23:06)
[2016-11-26] MEDS: PRENATAL VITAMINS W/ FOLIC ACID TABLET (FP) PO SCH (10:48)
--- NOTE | 2016-11-26 12:02 | PN ---
[facility] CIWA - CIWA Score Nausea/Vomitin-No Nausea/No Vomiting Muscle Tremors: 4-Moderate,w/Arms Extend Anxiety: 4-Mod. Anxious/Guarded Agitation: 4-Moderately Restless Paroxysmal Sweats: 1-Minimal Palms Moist Orientation: 0-Oriented Tacttile Disturbances: 3-Moderate Itch/Numb/Burn Auditory Disturbances: 0-None Visual Disturbances: 0-None Headache: 0-None Present CIWA-Ar Total Score: 16 S Progress Note (SOAP) Subjective: ANXIETY,SWEATS,TREMORS, INTERMITTENT SLEEP.- Objective: 11/26/16 12:00 Vital Signs 11/26/16 11/26/16 06:57 10:15 Temperature 97.8 F 98.1 F Pulse Rate 86 121 H Respiratory 20 18 Rate Blood Pressure 147/89 152/98 Laboratory Last Values WBC 5.7 K/mm3 (4.0-10.0) D 11/25/16 14:00 RBC 3.14 M/mm3 (4.00-5.60) L D 11/25/16 14:00 Hgb 10.5 GM/dL (11.7-16.9) L D 11/25/16 14:00 Hct 30.9 % (35.4-49) L D 11/25/16 14:00 MCV 98.5 fl (80-96) H 11/25/16 14:00 MCH 33.5 pg (25.7-33.7) 11/25/16 14:00 MCHC 34.0 g/dl (32.0-35.9) 11/25/16 14:00 RDW 14.0 % (11.9-15.9) 11/25/16 14:00 Plt Count 435 K/MM3 (134-434) H D 11/25/16 14:00 MPV 7.2 fl (7.5-11.1) L D 11/25/16 14:00 Sodium 142 mmol/L (136-145) 11/25/16 14:00 Potassium 5.3 mmol/L (3.5-5.1) H D 11/25/16 14:00 Chloride 109 mmol/L (98-107) H 11/25/16 14:00 Carbon Dioxide 27 mmol/L (21-32) 11/25/16 14:00 Anion Gap 6 (8-16) L 11/25/16 14:00 BUN 12 mg/dL (7-18) D 11/25/16 14:00 Creatinine 0.9 mg/dL (0.7-1.3) 11/25/16 14:00 Creat Clearance w eGFR > 60 (>60) 11/25/16 14:00 Random Glucose 72 mg/dL (74-106) L 11/25/16 14:00 Calcium 8.8 mg/dL (8.5-10.1) 11/25/16 14:00 Total Bilirubin 0.4 mg/dL (0.2-1.0) D 11/25/16 14:00 AST 30 U/L (15-37) D 11/25/16 14:00 ALT 20 U/L (12-78) D 11/25/16 14:00 Alkaline Phosphatase 86 U/L (45-117) D 11/25/16 14:00 Total Protein 8.2 g/dl (6.4-8.2) 11/25/16 14:00 Albumin 3.5 g/dl (3.4-5.0) 11/25/16 14:00 Urine Color Ltyellow 11/25/16 15:00 Urine Appearance Slcloudy 11/25/16 15:00 Urine pH 5.0 (5.0-8.0) 11/25/16 15:00 Ur Specific [place] 1.015 (1.005-1.025) 11/25/16 15:00 Urine Protein Negative (NEGATIVE) 11/25/16 15:00 Urine Glucose (UA) Negative (NEGATIVE) 11/25/16 15:00 Urine Ketones Negative (NEGATIVE) 11/25/16 15:00 Urine Blood Negative (NEGATIVE) 11/25/16 15:00 Urine Nitrite Negative (NEGATIVE) 11/25/16 15:00 Urine Bilirubin Negative (NEGATIVE) 11/25/16 15:00 Urine Urobilinogen Negative mg/dL (0.2-1.0) 11/25/16 15:00 Ur Leukocyte Esterase Negative (NEGATIVE) 11/25/16 15:00 LAB RESULTS NOTED K+ = 5.3 HGB/HCT = 10.3/30.9 Assessment: 11/26/16 12:04 WITHDRAWAL SX Plan: CONTINUE DETOX INCREASE PO FLUIDS REPEAT K+ LEVEL IN AM
--- NOTE | 2016-11-26 12:43 | EKG ---
Test Reason : Blood Pressure : / mmHG Vent. Rate : 087 BPM Atrial Rate : 087 BPM P-R Int : 116 ms QRS Dur : 072 ms QT Int : 384 ms P-R-T Axes : 042 025 047 degrees QTc Int : 462 ms NORMAL SINUS RHYTHM NORMAL ECG WHEN COMPARED WITH ECG OF 30-MAY-2016 15:01, NO SIGNIFICANT CHANGE WAS FOUND Confirmed by CHRIS OLSON MD ([id number]) on 11/26/2016 12:43:02 PM Referred By: Ehsan Weir Confirmed By:CHRIS OLSON MD
--- NOTE | 2016-11-26 12:51 | CONSULT ---
[facility] Psychiatric Consult - Data Date of interview: 11/26/16 Admission source: [facility] Identifying data: Another admission to [facility] for this 56 y/o AA male seeking detox treatment for alcohol dependence.He is single,a father of five, domiciled (transitional housing),unemployed and supported on SSI benefits. Substance Abuse History: Confirmed by patient. Smoking Cessation. Smoking history: Former smoker. Have you smoked in the past 12 months: No. Aproximately how many cigarettes per day: 0. If you are a former smoker, when did you quit?: 1979. Cigars Per Day: 0. Hx Chewing Tobacco Use: No. Initiated information on smoking cessation: No. - Substances Abused. Alcohol-beer. Route: Oral. Frequency: Daily. Amount used: 4-5 (40 oz.). Age of first use: 9. Date of Last Use: 11/24/16 Medical History: Bronchial asthma (childhood),seizures (alcohol-induced in 2013 ) and history of surgery for testicular torsion.Noted report of past treatment for gonorrhea. Psychiatric History: Patient denies psychiatric hospitalizations.History of OPD care at [facility] [place].Diagnosed with " Schizophrenia and Bipolar Disorder." Mr Salguero still gets his psychiatric oupatient services at the [facility] ([place]).Maintained on a regimen of 10 mg of asenapine (saphris) daily.Chronically non-adherent to medication + OPD appointments.No history of suicide attempts. Physical/Sexual Abuse/Trauma History: Patient denies. Additional Comment: Urine Drug Screen Results: AMRIK-Cocaine, BZO- Benzodiazepines.Noted. Mental Status Exam - Mental Status Exam Alert and Oriented to: Time, Place, Person Cognitive Function: Good Patient Appearance: Well Groomed Mood: Hopeful, Euthymic Affect: Appropriate, Normal Range Patient Behavior: Fatigued, Appropriate, Cooperative Speech Pattern: Clear Voice Loudness: Normal Thought Process: Goal Oriented Thought Disorder: Not Present Hallucinations: Denies Suicidal Ideation: Denies Homicidal Ideation: Denies Insight/Judgement: Poor Sleep: Poorly, Difficulty falling asleep Appetite: Good Muscle strength/Tone: Normal Gait/Station: Normal Psychiatric Findings - Problem List ([place] 1, 2,3) (1) Alcohol dependence with uncomplicated withdrawal Current Visit: Yes Status: Acute (2) Substance induced mood disorder Current Visit: Yes Status: Acute (3) Bipolar disorder Current Visit: Yes Status: Chronic Qualifiers: Active/Remission status: remission status unspecified Qualified Code(s) : F31.9 - Bipolar disorder, unspecified Comment: History. (4) Arthritis of knee, right Current Visit: Yes Status: Chronic (5) Arthritis of left knee Current Visit: Yes Status: Chronic (6) Gouty arthritis of toe of left foot Current Visit: Yes Status: Chronic (7) Rash Current Visit: Yes Status: Chronic (8) Insomnia Current Visit: Yes Status: Acute - Initial Treatment Plan Initial Treatment Plan: Psychoeducation.Detoxification.Ambien 10 mg po hs prn.Patient is informed of risk of parasomnias.He agrees with this careplan.Observation.
[2016-11-26] MEDS: FERROUS SO4 325 MG TABLET (FP) PO SCH ×2 (13:42→17:45)
[2016-11-26] MEDS: THIAMINE HCL 100 MG TABLET (FP) PO SCH (23:06)
[2016-11-26] MEDS: diphenhydrAMINE HCL 50 MG CAPSULE PO PRN (23:13)
[2016-11-27] MEDS: chlordiazePOXIDE HCL 25 MG CAPSULE PO SCH ×2 (06:15→10:51)
[2016-11-27] MEDS: FERROUS SO4 325 MG TABLET (FP) PO SCH ×2 (07:52→17:18)
[2016-11-27 09:46] LABS: MCH 32.3 pg (25.7-33.7); MCHC 32.9 g/dl (32.0-35.9); MEAN CELL VOLUME 98.1 fl (80-96); PLATELET COUNT 402 K/MM3 (134-434); RDW 14.1 % (11.9-15.9); WHITE BLOOD COUNT 5.5 K/mm3 (4.0-10.0)
[2016-11-27] MEDS: PRENATAL VITAMINS W/ FOLIC ACID TABLET (FP) PO SCH (10:51)
--- NOTE | 2016-11-27 11:21 | PN ---
[facility] CIWA - CIWA Score Nausea/Vomitin-No Nausea/No Vomiting Muscle Tremors: 4-Moderate,w/Arms Extend Anxiety: 4-Mod. Anxious/Guarded Agitation: 4-Moderately Restless Paroxysmal Sweats: 1-Minimal Palms Moist Orientation: 0-Oriented Tacttile Disturbances: 3-Moderate Itch/Numb/Burn Auditory Disturbances: 0-None Visual Disturbances: 0-None Headache: 0-None Present CIWA-Ar Total Score: 16 [facility] Progress Note (SOAP) Subjective: ANXIETY, SWEATS, TREMORS, INTERMITTENT SLEEP Objective: 11/27/16 11:17 Vital Signs 11/27/16 11/27/16 11/27/16 04:12 06:55 09:08 Temperature 98 F 96.6 F L Pulse Rate 101 H 107 H Respiratory 18 20 20 Rate Blood Pressure 127/84 130/89 Laboratory Last Values WBC 5.5 K/mm3 (4.0-10.0) 11/27/16 07:00 RBC 3.28 M/mm3 (4.00-5.60) L 11/27/16 07:00 Hgb 10.6 GM/dL (11.7-16.9) L 11/27/16 07:00 Hct 32.2 % (35.4-49) L 11/27/16 07:00 MCV 98.1 fl (80-96) H 11/27/16 07:00 MCH 32.3 pg (25.7-33.7) 11/27/16 07:00 MCHC 32.9 g/dl (32.0-35.9) 11/27/16 07:00 RDW 14.1 % (11.9-15.9) 11/27/16 07:00 Plt Count 402 K/MM3 (134-434) 11/27/16 07:00 MPV 7.0 fl (7.5-11.1) L 11/27/16 07:00 Sodium 142 mmol/L (136-145) 11/25/16 14:00 Potassium 4.1 mmol/L (3.5-5.1) D 11/27/16 07:00 Chloride 109 mmol/L (98-107) H 11/25/16 14:00 Carbon Dioxide 27 mmol/L (21-32) 11/25/16 14:00 Anion Gap 6 (8-16) L 11/25/16 14:00 BUN 12 mg/dL (7-18) D 11/25/16 14:00 Creatinine 0.9 mg/dL (0.7-1.3) 11/25/16 14:00 Creat Clearance w eGFR > 60 (>60) 11/25/16 14:00 Random Glucose 72 mg/dL (74-106) L 11/25/16 14:00 Calcium 8.8 mg/dL (8.5-10.1) 11/25/16 14:00 Total Bilirubin 0.4 mg/dL (0.2-1.0) D 11/25/16 14:00 AST 30 U/L (15-37) D 11/25/16 14:00 ALT 20 U/L (12-78) D 11/25/16 14:00 Alkaline Phosphatase 86 U/L (45-117) D 11/25/16 14:00 Total Protein 8.2 g/dl (6.4-8.2) 11/25/16 14:00 Albumin 3.5 g/dl (3.4-5.0) 11/25/16 14:00 Urine Color Ltyellow 11/25/16 15:00 Urine Appearance Slcloudy 11/25/16 15:00 Urine pH 5.0 (5.0-8.0) 11/25/16 15:00 Ur Specific [place] 1.015 (1.005-1.025) 11/25/16 15:00 Urine Protein Negative (NEGATIVE) 11/25/16 15:00 Urine Glucose (UA) Negative (NEGATIVE) 11/25/16 15:00 Urine Ketones Negative (NEGATIVE) 11/25/16 15:00 Urine Blood Negative (NEGATIVE) 11/25/16 15:00 Urine Nitrite Negative (NEGATIVE) 11/25/16 15:00 Urine Bilirubin Negative (NEGATIVE) 11/25/16 15:00 Urine Urobilinogen Negative mg/dL (0.2-1.0) 11/25/16 15:00 Ur Leukocyte Esterase Negative (NEGATIVE) 11/25/16 15:00 RPR Titer Nonreactive (NONREACTIVE) 11/25/16 14:00 Assessment: 11/27/16 11:20 WITHDRAWAL SX Plan: CONTINUE DETOX
[2016-11-27] MEDS: chlordiazePOXIDE 5 MG CAPSULE PO SCH ×2 (17:18→22:27)
[2016-11-27] MEDS: THIAMINE HCL 100 MG TABLET (FP) PO SCH (22:27)
[2016-11-27] MEDS: ZOLPIDEM TARTRATE 10 MG TABLET (PARK CARE ONLY) PO PRN (22:28)
[2016-11-28] MEDS: chlordiazePOXIDE 5 MG CAPSULE PO SCH ×2 (05:25→10:09)
[2016-11-28] MEDS: FERROUS SO4 325 MG TABLET (FP) PO SCH ×2 (08:33→17:13)
[2016-11-28] MEDS: PRENATAL VITAMINS W/ FOLIC ACID TABLET (FP) PO SCH (10:09)
--- NOTE | 2016-11-28 11:16 | PN ---
[facility] Progress Note (SOAP) Subjective: DECREASED ANXIETY, SWEATS, FATIGUE Objective: 11/28/16 11:12 Vital Signs 11/28/16 11/28/16 06:42 09:57 Temperature 97.6 F 97.0 F L Pulse Rate 107 H 112 H Respiratory 18 20 Rate Blood Pressure 140/87 128/89 Assessment: 11/28/16 11:12 WITHDRAWAL SX Laboratory Tests 11/25/16 11/25/16 11/25/16 14:00 14:00 14:00 WBC 5.7 D RBC 3.14 L D Hgb 10.5 L D Hct 30.9 L D MCV 98.5 H MCH 33.5 MCHC 34.0 RDW 14.0 Plt Count 435 H D MPV 7.2 L D Sodium 142 Potassium 5.3 H D Chloride 109 H Carbon Dioxide 27 Anion Gap 6 L BUN 12 D Creatinine 0.9 Creat Clearance w eGFR > 60 Random Glucose 72 L Calcium 8.8 Total Bilirubin 0.4 D AST 30 D ALT 20 D Alkaline Phosphatase 86 D Total Protein 8.2 Albumin 3.5 Urine Color Urine Appearance Urine pH Ur Specific [place] Urine Protein Urine Glucose (UA) Urine Ketones Urine Blood Urine Nitrite Urine Bilirubin Urine Urobilinogen Ur Leukocyte Esterase RPR Titer Nonreactive 11/25/16 11/27/16 11/27/16 15:00 07:00 07:00 WBC 5.5 RBC 3.28 L Hgb 10.6 L Hct 32.2 L MCV 98.1 H MCH 32.3 MCHC 32.9 RDW 14.1 Plt Count 402 MPV 7.0 L Sodium Potassium 4.1 D Chloride Carbon Dioxide Anion Gap BUN Creatinine Creat Clearance w eGFR Random Glucose Calcium Total Bilirubin AST ALT Alkaline Phosphatase Total Protein Albumin Urine Color Ltyellow Urine Appearance Slcloudy Urine pH 5.0 Ur Specific [place] 1.015 Urine Protein Negative Urine Glucose (UA) Negative Urine Ketones Negative Urine Blood Negative Urine Nitrite Negative Urine Bilirubin Negative Urine Urobilinogen Negative Ur Leukocyte Esterase Negative RPR Titer K+ = 4.1 Plan: CONTINUE DETOX
[2016-11-28] MEDS: chlordiazePOXIDE HCL 10 MG CAPSULE PO SCH ×2 (17:13→22:36)
[2016-11-28] MEDS: THIAMINE HCL 100 MG TABLET (FP) PO SCH (22:36)
[2016-11-28] MEDS: ZOLPIDEM TARTRATE 10 MG TABLET (PARK CARE ONLY) PO PRN (22:36)
[2016-11-29] MEDS: chlordiazePOXIDE HCL 10 MG CAPSULE PO SCH ×2 (05:25→12:07)
[2016-11-29 06:41] VITALS: BP 127/89; PULSE 113; TEMP 98
[2016-11-29] MEDS: FERROUS SO4 325 MG TABLET (FP) PO SCH (12:06)
[2016-11-29] MEDS: PRENATAL VITAMINS W/ FOLIC ACID TABLET (FP) PO SCH (12:07)
--- NOTE | 2016-11-29 21:16 | DS ---
[facility] Detox Discharge Summary Admission Date: 11/25/16 Discharge Date: 11/29/16 - History Present History: Alcohol Dependence Additional Comments: PATIENT GOING TO [facility]. PATIENT ADVISED TO CONSIDER LOCAL 12-STEP / NA PROGRAMS FOR FOLLOW-UP AFTERCARE. PATIENT WAS DISCHARGED FROM UNIT IN STABLE MEDICAL CONDITION. Pertinent Past History: Asthma, Depression, Bipolar Disorder, Schizophrenia, Gout, Arthritis of Bilateral Knees. - Physical Exam Results Vital Signs: Vital Signs Temperature 98 F 11/29/16 06:41 Pulse Rate 113 H 11/29/16 06:41 Respiratory Rate 16 11/29/16 06:41 Blood Pressure 127/89 11/29/16 06:41 O2 Sat by Pulse Oximetry (%) Pertinent Admission Physical Exam Findings: WITHDRAWAL SYMPTOMS. Laboratory Tests 11/25/16 11/25/16 11/25/16 14:00 14:00 14:00 WBC 5.7 D RBC 3.14 L D Hgb 10.5 L D Hct 30.9 L D MCV 98.5 H MCH 33.5 MCHC 34.0 RDW 14.0 Plt Count 435 H D MPV 7.2 L D Sodium 142 Potassium 5.3 H D Chloride 109 H Carbon Dioxide 27 Anion Gap 6 L BUN 12 D Creatinine 0.9 Creat Clearance w eGFR > 60 Random Glucose 72 L Calcium 8.8 Total Bilirubin 0.4 D AST 30 D ALT 20 D Alkaline Phosphatase 86 D Total Protein 8.2 Albumin 3.5 Urine Color Urine Appearance Urine pH Ur Specific [place] Urine Protein Urine Glucose (UA) Urine Ketones Urine Blood Urine Nitrite Urine Bilirubin Urine Urobilinogen Ur Leukocyte Esterase RPR Titer Nonreactive 11/25/16 11/27/16 11/27/16 15:00 07:00 07:00 WBC 5.5 RBC 3.28 L Hgb 10.6 L Hct 32.2 L MCV 98.1 H MCH 32.3 MCHC 32.9 RDW 14.1 Plt Count 402 MPV 7.0 L Sodium Potassium 4.1 D Chloride Carbon Dioxide Anion Gap BUN Creatinine Creat Clearance w eGFR Random Glucose Calcium Total Bilirubin AST ALT Alkaline Phosphatase Total Protein Albumin Urine Color Ltyellow Urine Appearance Slcloudy Urine pH 5.0 Ur Specific [place] 1.015 Urine Protein Negative Urine Glucose (UA) Negative Urine Ketones Negative Urine Blood Negative Urine Nitrite Negative Urine Bilirubin Negative Urine Urobilinogen Negative Ur Leukocyte Esterase Negative RPR Titer LABS NOTED. - Treatment Hospital Course: Detox Protocol Followed, Detoxed Safely, Responded well, Discharged Condition Good Patient has Accepted a Rehab Referral to: PT. [facility]ING [facility]; ADVISED TO CONSIDER 12-STEP/AA PROGRAMS. - Medication Discharge Medications: Ambulatory Orders Asenapine [Saphris -] 10 mg SL DAILY 02/05/15 Naproxen [Naprosyn -] 500 mg PO DAILY 11/25/16 Atorvastatin Calcium 40 mg PO HS 11/26/16 Omeprazole 40 mg PO DAILY 11/26/16 - Diagnosis (1) Alcohol dependence with uncomplicated withdrawal Status: Acute (2) Insomnia Status: Acute Qualifiers: Insomnia type: unspecified Qualified Code(s): G47.00 - Insomnia, unspecified (3) Substance induced mood disorder Status: Acute (4) Arthritis of knee, right Status: Chronic (5) Arthritis of left knee Status: Chronic (6) Bipolar disorder Status: Chronic Qualifiers: Active/Remission status: remission status unspecified Qualified Code(s) : F31.9 - Bipolar disorder, unspecified (7) Dry skin Status: Chronic (8) Gouty arthritis of toe of left foot Status: Chronic - AMA Did Patient Leave Against Medical Advice: No
== END 2016-11-29 12:38 | disposition home or self-care (01) | DRG 775 ==
LOC: YASAS 08:51 → Y3N 11:59
PROVIDERS: ADMIT Internal Medicine Addiction Medicine; ATTEND Internal Medicine Addiction Medicine
PROC: HZ2ZZZZ Detoxification Services for Substance Abuse Treatment (ICD-10-PCS; principal; 2016-11-25)
DX: F10.230 Alcohol dependence with withdrawal, uncomplicated (principal); F19.24 Other psychoactive substance dependence with psychoactive substance-induced mood disorder; F31.9 Bipolar disorder, unspecified; G47.00 Insomnia, unspecified; M13.862 Other specified arthritis, left knee; M13.861 Other specified arthritis, right knee; L98.8 Other specified disorders of the skin and subcutaneous tissue; M1A.9XX0 Chronic gout, unspecified, without tophus (tophi); R21 Rash and other nonspecific skin eruption; Z86.69 Personal history of other diseases of the nervous system and sense organs; Z87.09 Personal history of other diseases of the respiratory system; Z87.438 Personal history of other diseases of male genital organs; Z91.013 Allergy to seafood; Z87.891 Personal history of nicotine dependence
CPT/HCPCS: 36415; 71020-TC; 80053; 81003; 84132; 85027; 86593; 93005; 93010